=== PATIENT | male | born 1985 | race Two or more races ===

== ENCOUNTER 2018-01-27 07:49 | Emergency (ER) | payer OTHER ==
[2018-01-27 08:00] VITALS: BP 133/69
--- NOTE | 2018-01-27 08:15 | ED Physician Documentation ---
PD HPI LOWER EXT INJURY - Stated complaint Stated Complaint: ANKLE PX - Chief complaint Chief Complaint: Ext Problem - History obtained from History obtained from: Patient - History of Present Illness PD HPI LOW EXT INJURY LOCATION: Left, Lower leg, Ankle Type of injury: No: Twist (was running and felt at the landing/pushoff part of the run on left foot that there was a sudden pop and pain in heel. Then pain with walking.) Where injury occurred: Other (playing football last evening.) Timing - onset: Last night Timing - details: Abrupt onset (He was running and felt an abrupt onset of pain in the left heel at the landing and push off part of the run. There is no twist per se. There is no direct impact from any other player. He had pain and there was having significant discomfort with walking. He feels a weakness with pushing down with the foot.) Improved by: Rest Worsened by: Palpating, Other (walking very painful) Associated symptoms: Weakness (for plantar flex). No: Numbness Similar symptoms before: Has not had sx before Recently seen: Not recently seen Review of Systems Skin: denies: Abrasion (s), Laceration (s) Neurologic: reports: Focal weakness. denies: Numbness PD PAST MEDICAL HISTORY - Past Medical History Past Medical History: No - Past Surgical History Past Surgical History: No - Present Medications Home Medications: Ambulatory Orders Medication Instructions Recorded Confirmed Ibuprofen [Motrin] 600 mg PO TID #30 tab 01/27/18 Tramadol HCl 50 mg PO Q6H PRN #20 tablet 01/27/18 - Allergies Allergies/Adverse Reactions: Allergies Allergy/AdvReac Type Severity Reaction Status Date / Time No Known Drug Allergies Allergy Verified 01/27/18 07:59 - Social History Does the pt smoke?: Yes Smoking Status: Current every day smoker PD ED PE NORMAL - Vitals Vital signs reviewed: Yes - General General: Alert and oriented X 3, No acute distress, Well developed/nourished - Derm Derm: Normal color, Warm and dry, No rash - Extremities Extremities: No deformity, No edema, Other (There is significant tenderness in the mid Achilles area about 2-3 cm above the heel insertion. There is a soft filling defect of the Achilles cord. He is able to plantarflex very slightly but with significant pain suggesting a near complete rupture. He has normal sensation in the foot. There is good color and capillary refill and pulses. The malleoli themselves are not tender. There is no pain or tenderness in the upper calf.) - Neuro Neuro: No sensory deficit Results - Vitals Vitals: Vital Signs - 24 hr 01/27/18 07:56 Temperature 36.8 C Heart Rate 65 Respiratory 15 Rate Blood Pressure 133/69 H O2 Saturation 99 Oxygen O2 Source Room air - Rads (name of study) ankle xray Radiology: Prelim report reviewed, EMP read contemporaneously (no fractures) Procedures - Splint (location) left ankle Splint applied by: Tech Type of splint: Fiberglass, Short leg, Posterior (in equines position) Other: Patient tolerated well, No complications, Neurovascular intact, Crutches provided PD MEDICAL DECISION MAKING - ED course Complexity details: d/w specialty sales consultant ([facility] surgeon, who said to have patient bypass primary care and be seen directly to Ortho clinic today. Agrees with splint and crutches. ) Departure - Departure Disposition: Home, Self Care Clinical Impression: Achilles rupture, left Qualifiers: Encounter type: initial encounter Qualified Code(s): S86.012A - Strain of left Achilles tendon, initial encounter Condition: Stable Record reviewed to determine appropriate education?: Yes Instructions: ED Tendon Rupture Achilles Follow-Up: [facility] [Provider Group] Prescriptions: Ibuprofen [Motrin] 600 mg PO TID #30 tab Tramadol HCl 50 mg PO Q6H PRN #20 tablet PRN Reason: Pain Comments: Keep weight off the foot and keep the splint on. Crutches for nonweightbearing. Elevate ice and rest the ankle often to keep swelling down. Ibuprofen 3 times a day for pain and inflammation. Add tramadol if needed for pain. [place] you go to the orthopedic clinic today. He when you check in at the [facility] tell them that you do not need to see primary care but we had talked to Cora Orozco and were directed to be seen at the orthopedic clinic. He will assess your degree of injury and decide if further testing is needed, or if they until clinically if it needs repair or just casting.
--- NOTE | 2018-01-27 08:34 | XRAY Report ---
Reason: pain after fall and heard a pop. Procedure Date: 01/27/2018 Accession Number: [id number] / [id number] Procedure: XR - Calcaneus LT CPT Code: FULL RESULT: EXAM: LEFT ANKLE RADIOGRAPHY EXAM DATE: 01/27/2018 08:22 AM. CLINICAL HISTORY: Pain after fall and heard a pop. COMPARISON: None. TECHNIQUE: 3 views. FINDINGS: Bones: No acute fracture or bony lesion. Plantar calcaneal spur. Joints: Normal. No effusion. No subluxations. The ankle mortise is normally aligned. Soft Tissues: Soft tissue swelling. No radiopaque foreign bodies. IMPRESSION: 1. No acute osseous abnormalities. RADIA
[2018-01-27] MEDS ORDERED: ACETAMINOPHEN 325 MG TABLET PO STA (08:59)
[2018-01-27] MEDS ORDERED: IBUPROFEN 600 MG TABLET PO STA (08:59)
== END 2018-01-27 09:31 | disposition home or self-care (01) ==
LOC: EDBD → ED 07:49
DX: F17.200 Nicotine dependence, unspecified, uncomplicated (principal); S86.012A Strain of left Achilles tendon, initial encounter; X58.XXXA Exposure to other specified factors, initial encounter; Y93.61 Activity, american tackle football
CPT/HCPCS: 29515; 73650; 99283; A9270

== ENCOUNTER 2018-01-28 10:13 | Day surgery (SDC) | payer OTHER ==
--- NOTE | 2018-01-28 10:23 | ANESTHESIA ---
Pre-Anesthesia VS, & Labs - Diagnosis L achilles rupture - Procedure L achilles tendon repair Height 5 ft 9 in Weight (kg) 80.74 kg Body Mass Index 27.3 - NPO >8 hours Home Medications and Allergies Allergies/Adverse Reactions: Allergies Allergy/AdvReac Type Severity Reaction Status Date / Time No Known Drug Allergies Allergy Verified 01/27/18 07:59 Anes History & Medical History - Anesthetic History Anesthesia Complications: reports: No previous complications Family history of Anesthesia Complications: Denies Family history of Malignant Hyperthermia: Denies - Medical History Cardiovascular: reports: None Pulmonary: reports: None Gastrointestinal: reports: None Urinary: reports: None Musculoskeletal: reports: Other Endocrine/Autoimmune: reports: None Skin: reports: None Smoking Status: Current every day smoker - Surgical History General: Other Orthopedic: Other (Bone Marrow Donation) Exam General: Alert, Oriented x3 Dental: WNL Mouth Opening: Greater than 4 Fingerbreadths Neck Mobility: Normal Mallampati classification: I Thyromental Distance: greater than 6 cm Respiratory: Lungs clear, Normal breath sounds, No respiratory distress Cardiovascular: Regular rate Neurological: Normal speech Mental/Cognitive Status: Alert/Oriented X3, Normal for patient Cognitive Status: Within normal limits Plan Anesthesia Type: General Consent for Procedure(s) Verified and Reviewed: Yes Code Status: Attempt Resuscitation ASA classification: 1-Healthy patient Is this case an emergency?: No
[2018-01-28] MEDS ORDERED: ceFAZolin 2 GM/50 ML 2 GM/50 ML BAG IV ONE (10:29)
[2018-01-28] MEDS ORDERED: LACTATED RINGERS 1,000 ML IV ONE ×2 (10:30→12:54)
--- NOTE | 2018-01-28 11:32 | OPERATIVE REPORT ---
Operative Report - General Planned Procedure: Left Achilles tendon repair Pre-Op Diagnosis: Left Achilles Tendon Tear Procedure Performed: Left Achilles Tendon Repari - Procedure Note Primary Surgeon: Ruchi Secondary Surgeon: Quinten FOOTE Estimated Blood Loss (mL): 10 Complications: None - Other Other Information/Narrative: Tourniquet time: 64 minutes DVT prophylaxis: Early frequent ambulation. Aspirin daily. SCD while in the hospital. Indication for surgery: This is a 32-year-old male who sustained a left Achilles tendon rupture 2 days ago playing flag football. I discussed the risks, benefits, alternatives to surgery. The goal of surgery is to decrease rerupture rate and potentially decrease time to return to play. The risks include pain, bleeding, infection, damage to nearby structures, neuroma, DVT, PE, anesthetic risks, weakness, wound healing complications. Procedure in detail: The patient was met in the preoperative holding on the day of the procedure. Operative extremity was signed. Consent was verified. He desired to proceed. He was brought to the operating room and surrendered to anesthesia. Once general anesthesia been obtained he was placed in the prone position and all bony prominences were well-padded. He was then prepped and draped in the standard sterile fashion. Surgical timeout was held will be confirmed the patient procedure, identity, allergies, antibiotics. All were in agreement we proceeded. An 8 cm incision was made just medial to midline overlying the Achilles tendon rupture. Sharp dissection was brought down to the peritenon and it was split in line with its fibers. The Achilles tear was identified and loose tissue was debrided. I freed from the underlying peritenon with digital dissection. The tear was seen to be adjacent to the musculotendinous junction but there was a good tendinous tissue posteriorly to obtain purchase. I then placed a #5 FiberWire in the proximal tendon with 4 Krakw sutures up in 4 Krackow sutures down. There was excellent purchase. I then performed the same procedure on the distal fragment. I then made a tension relieving cuts into the anterior aspect of the peritenon to aid in closure. I then placed a bump under the toe to plantar flex the foot and tied the sutures to each other using 8 reverse half hitches on alternating posts. The tendon was seen to move in continuity. I then used an 0 Vicryl to oversew the top and to bury the knots. The wound was irrigated copiously. I then used 0 Vicryl to close a tenosynovial layer over the repair. I then closed the peritenon with 0 Vicryl in a running fashion. The closure was somewhat tenuous. The skin was then closed with 3-0 Prolene in vertical mattress fashion taking care to not crush the adjacent skin. 12 cc of quarter percent Marcaine plain were instilled about the incision. A sterile dressing was then applied and a splint was placed anteriorly keeping the foot in plantarflexion. He was then awakened and transferred to the recovery room.
[2018-01-28] MEDS ORDERED: BUPIVACAINE 0.25% PF 30 ML VIAL ONE (12:08)
[2018-01-28] MEDS ORDERED: BUPIVACAINE 0.25% PF 30 ML VIAL SUBQ ONE ×2 (12:16)
[2018-01-28] MEDS ORDERED: NEOSTIGMINE 1 MG/1 ML 10 ML MDV IVP ONE (12:20)
[2018-01-28] MEDS ORDERED: SUCCINYLCHOLINE 200 MG/10 ML VIAL IVP ONE (12:20)
[2018-01-28] MEDS ORDERED: GLYCOPYRROLATE 1 MG/5 ML VIAL IVP ONE (12:20)
[2018-01-28] MEDS ORDERED: PROPOFOL 200 MG/20 ML VIAL IVP ONE (12:20)
[2018-01-28] MEDS ORDERED: MIDAZOLAM 2 MG/2 ML VIAL IVP ONE (12:20)
[2018-01-28] MEDS ORDERED: ONDANSETRON 4 MG/2 ML VIAL IVP ONE (12:20)
[2018-01-28] MEDS ORDERED: ACETAMINOPHEN 1,000 MG/100 ML 100 ML IV ONE (12:20)
[2018-01-28] MEDS ORDERED: DEXAMETHASONE 4 MG/ML VIAL IVP ONE (12:20)
[2018-01-28] MEDS ORDERED: ROCURONIUM 50 MG/5 ML VIAL IVP ONE (12:20)
[2018-01-28] MEDS ORDERED: LIDOCAINE-MPF 2% 5 ML VIAL IM ONE (12:20)
[2018-01-28] MEDS ORDERED: ONDANSETRON 4 MG/2 ML VIAL IVP PRN (13:35)
[2018-01-28] MEDS ORDERED: oxyCODONE 5 MG TABLET PO PRN (13:35)
[2018-01-28] MEDS: HYDROmorphone 1 MG/ML CARPUJECT ONE ×2 (13:44→13:52)
[2018-01-28] MEDS ORDERED: oxyCODONE 5 MG TABLET ONE (14:23)
[2018-01-28 14:53] VITALS: BP 121/86
[2018-01-28] MEDS ORDERED: ONDANSETRON 4 MG/2 ML VIAL ONE (15:10)
== END 2018-01-28 10:14 | disposition home or self-care (01) ==
LOC: SDS 10:13 → EDBD 11:15
PROVIDERS: ATTEND Orthopaedic Surgery
PROC: 0LQP0ZZ Repair Left Lower Leg Tendon, Open Approach (ICD-10-PCS; principal; 2018-01-28 11:15)
DX: S86.012A Strain of left Achilles tendon, initial encounter (principal)
CPT/HCPCS: 27650; A9270; J0690; J1170; J7120

== ENCOUNTER 2019-07-06 19:31 | Emergency (ER) | payer OTHER ==
[2019-07-06] MEDS ORDERED: LIDOCAINE 1% 2 ML VIAL SUBQ STA (19:55)
--- NOTE | 2019-07-06 19:57 | ED Physician Documentation ---
PD HPI SKIN - Stated complaint Stated Complaint: L THUMB LAC - Chief complaint Chief Complaint: Laceration - History obtained from History obtained from: Patient (Pt presents w/left thumb lac after bit by a dog. Two dogs were in a small fight and he was them. Dog is vaccinated. Pt is , unsure of his last Td but knows it is uptodate. He has normal sensation and motion of the thumb.) Review of Systems Ten Systems: 10 systems reviewed and negative PD PAST MEDICAL HISTORY - Past Medical History Past Medical History: Yes Cardiovascular: None Respiratory: None Neuro: None Endocrine/Autoimmune: None GI: None : None HEENT: Chronic sinusitis Psych: None Musculoskeletal: Other Derm: None - Past Surgical History Past Surgical History: No General: Other Ortho: Other - Present Medications Home Medications: Ambulatory Orders Medication Instructions Recorded Confirmed RX: Ibuprofen [Motrin] 600 mg PO TID #30 tab 01/27/18 01/28/18 RX: Tramadol HCl 50 mg PO Q6H PRN #20 tablet 01/27/18 01/28/18 Amox/Clav 875/125 [Augmentin] 1 each PO Q12H #20 tablet 07/06/19 - Allergies Allergies/Adverse Reactions: Allergies Allergy/AdvReac Type Severity Reaction Status Date / Time No Known Drug Allergies Allergy Verified 07/06/19 19:38 - Social History Does the pt smoke?: Yes Smoking Status: Current every day smoker Does the pt drink ETOH?: Yes Does the pt have substance abuse?: No - Immunizations Immunizations are current?: Yes - POLST Patient has POLST: No PD ED PE NORMAL - Vitals Vital signs reviewed: Yes - General General: Alert and oriented X 3, No acute distress, Well developed/nourished - HEENT HEENT: Atraumatic - Derm Derm: Normal color, Warm and dry, No rash, Other (2cm lac dorsum of left thumb just below the base of thumbnail. Nail slightly loose at the base but otherwise well adhered and intact and in place. Able to flex/ext thumb, nl sensation. ) Results - Vitals Vitals: Vital Signs - 24 hr 07/06/19 19:34 Temperature 36.9 C Heart Rate 107 H Respiratory 17 Rate Blood Pressure 134/93 H O2 Saturation 97 Oxygen O2 Source Room air Procedures - Laceration (location) left thumb Wound type: Linear Neurovascular status: Sensory intact, Motor intact, Vascular intact Anesthesia: Lidocaine 1% Wound Preparation: Hibiclens, Irrigated copiously NS Skin layer closure: Nylon, Size #-0 - enter number (5), Sutures - enter # (6) Other: Patient tolerated well, No complications, Neurovascular intact, Dressing applied, Tetanus UTD Complexity: Intermediate (There was limited viable tissue between lac and thumbnail. The viable areas had good approximation. The nail is just slightly loose.) PD MEDICAL DECISION MAKING - ED course Complexity details: d/w patient ED course: Pt presented w/ left thumb lac from dog bite. It was cleaned copiously. After informed verbal consent a suture repair was performed. The skin was jagged and there was limited viable skin between the nail and the laceration to suture. Pt aware that there may be some healing by secondary intention. I discussed home wound care precautions w/ him and advised to fup if there were signs of infection. I have sent him w/ a prescription for Augmentin but he can hold onto it and only start if there is red/swelling/drainage. Sutures to be removed in 5- 7 days. Departure - Departure Disposition: 01 Home, Self Care Clinical Impression: Laceration Condition: Good Instructions: ED Laceration All, ED Laceration Hand Prescriptions: Amox/Clav 875/125 [Augmentin] 1 each PO Q12H #20 tablet Comments: Please return if you develop redness/swelling or there is purulent drainage from the wound. Keep clean and dry with soap and water but do not soak. The sutures can be removed in 5-7 days.
[2019-07-06 20:34] VITALS: BP 129/92
== END 2019-07-06 20:38 | disposition home or self-care (01) ==
LOC: ED 19:31
DX: S61.012A Laceration without foreign body of left thumb without damage to nail, initial encounter (principal); W54.0XXA Bitten by dog, initial encounter; Y93.K9 Activity, other involving animal care; F17.200 Nicotine dependence, unspecified, uncomplicated
CPT/HCPCS: 12041; 99282